=== PATIENT | female | born 1945 | race Caucasian/White ===

== ENCOUNTER → 2023-08-28 10:46 | Outpatient (REF) | payer OTHER, SELFPAY | LOC: HWWDC 10:46 | PROVIDERS: ATTENDING PHYSICIAN Family Medicine | DX: Z12.31 Encounter for screening mammogram for malignant neoplasm of breast (principal) | CPT/HCPCS: 77063; 77067 ==

== ENCOUNTER 2023-08-31 13:51 | Emergency (ER) | payer OTHER, SELFPAY ==
[2023-08-31] VITALS (12 sets, daily range): BP systolic 181–208; BP diastolic 59–96
[2023-08-31 14:17] LABS: % Basophils 0.1 % (0-2); % Immature Granulocytes 0.5 % (0-0.5); % Lymphocytes 16.2 % (20.5-51.1); % Monocytes 7.8 % (1.7-9.3); % Neutrophils 75.4 % (42.2-75.2); Absolute Immature Granulocytes 0.1 10^3/uL (0-0.05); Absolute Lymphocytes 1.8 10^3/uL (1.2-3.4); Absolute Monocytes 0.9 10^3/uL (0.1-0.6); Absolute Neutrophils 8.2 10^3/uL (1.4-6.5); Hematocrit 38.1 % (37.0-47.0); Hemoglobin 13.8 g/dL (12.0-16.0); Mean Corp Hgb Conc. 36.2 g/dL (33.0-37.0); Mean Corpuscular Hgb 31.2 pg (27.0-31.0); Mean Platelet Volume 9.8 fL (7.4-10.4); Nucleated Red Blood Cells % 0 %; Platelet Count 210 10^3/uL (130-400); Red Blood Cell Count 4.43 10^6/uL (4.20-5.40); Red Cell Dist. Width 11.7 % (11.5-14.5); White Blood Cell Count 10.9 10^3/uL (4.8-10.8)
[2023-08-31 14:35] LABS: ALT (SGPT) 25 U/L (0-35); AST (SGOT) 34 U/L (14-36); Albumin 4.7 g/dl (3.5-5.0); Alkaline Phosphatase 69 U/L (38-126); Blood Urea Nitrogen 21 mg/dl (7-17); Calcium 9.7 mg/dl (8.4-10.2); Carbon Dioxide 30 mmol/L (22-30); Chloride 95 mmol/L (98-107); Glucose 125 mg/dl (70-99); Potassium 3.5 mmol/L (3.5-5.1); Sodium 129 mmol/L (135-145); Total Bilirubin 0.7 mg/dl (0.2-1.3); eGFR > 60.00
--- NOTE | 2023-08-31 17:29 | ED.GENMED ---
History of Present Illness
<CHINTAN Bello - Last Filed: 08/31/23 20:17>
General
Chief Complaint: Blood Pressure Problem
Source: patient
Exam Limitations: none
Time Seen by Provider: 08/31/23 17:15
Nursing documentation reviewed up to this point in time: agreed with
Travel History
Have you had any contact with someone who has COVID-19?: No
Do you have any symptoms of coronavirus? Fever > 100 degrees, chills, cough, shortness of breath, sore throat, loss of taste or smell, muscle aches, or headache?: No
History of Present Illness
History of Present Illness:
Patient is a 77-year-old female with history of hypertension hyperlipidemia presents to the ER for elevated blood pressure. Patient reports she has been flushed in the face since yesterday afternoon had some pressure behind her eyes. This
continued today. She took her blood pressure was 190 systolically. She has been taking her medication and has not missed a dose. She denies any chest pain shortness of breath nausea vomiting fever chills. Denies any new [id number] cough
cold medicines.
Review of Systems
<CHINTAN Bello - Last Filed: 08/31/23 20:17>
Review of Systems
Allergies reviewed?: Yes
All Other Systems: ROS reviewed and negative except as documented in HPI and ROS
Constitutional: Reports no symptoms; Denies fever, fatigue or chills
EENT: Reports no symptoms
Respiratory: Reports no symptoms; Denies trouble breathing
Cardiac: Reports no symptoms; Denies chest pain, diaphoresis or palpitations
ABD/GI: Reports no symptoms; Denies abdominal pain, nausea or vomiting
: Reports no symptoms
Musculoskeletal: Reports no symptoms; Denies neck pain
Skin: Reports no symptoms
Neurological: Reports other ('pressure behind eyes' )
Psychiatric: Reports no symptoms
Phy Exam
<CHINTAN Bello - Last Filed: 08/31/23 20:17>
General Physical Exam
General Presentation: no apparent distress
General age: appears stated age
General Skin: warm and dry
General Habitus: normal
General Mental: alert
General Hydration: appears well hydrated
Cardiovascular Exam
Cardiovascular Exam: regular rate/rhythm, no murmur and normal peripheral pulses
Pulmonary Exam
Pulmonary Exam: lungs clear and no respiratory distress
Neurological Exam
Neurological Exam: alert, oriented x3, no sensory deficits and speech normal
Musculoskeletal Exam
Musculoskeletal Exam: full ROM
Skin Exam
Skin Exam: normal color
Psychiatric Exam
Psychiatric Exam: normal mood/affect
Course
<CHINTAN Bello - Last Filed: 08/31/23 20:17>
Orders/Labs/Results
Orders:
Orders
08/31/23 14:03
CBC/With Diff [Complete Blood Count/With Diff] Urgent
CMP [Comprehensive Metabolic Panel] Urgent
08/31/23 17:26
Electrocardiogram (*1) Stat
Reason for Study: Other
Other Reason for Exam: chest pain
EKG- Treatment ONCE
08/31/23 17:27
Cardiac Monitoring- Treatment ONCE
08/31/23 17:30
CT Head W/o Iv Contrast Urgent
Comment:
Reason For Exam: headache elevated bp
08/31/23 19:14
IV Insert/Care/Rem.- Treatment PRN
0.9% Sodium Chloride 1000 ml [Nss] 1,000 ml IV BOLUS
Abnormal Lab Results
08/31/23
14:03
WBC 10.9 H 10^3/uL
(4.8-10.8)
MCH 31.2 H pg
(27.0-31.0)
Abs Immat Gran (auto) 0.1 H 10^3/uL
(0-0.05)
Absolute Neuts (auto) 8.2 H 10^3/uL
(1.4-6.5)
Absolute Monos (auto) 0.9 H 10^3/uL
(0.1-0.6)
Neutrophils % 75.4 H %
(42.2-75.2)
Lymphocytes % 16.2 L %
(20.5-51.1)
Sodium 129 L mmol/L
(135-145)
Chloride 95 L mmol/L
(98-107)
BUN 21 H mg/dl
(7-17)
Glucose 125 H mg/dl
(70-99)
08/31/23 14:03
08/31/23 14:03
Vital Signs
Initial and Last Documented VS:
Initial Vital Signs
Temp Pulse Resp BP Pulse Ox
98.3 F 87 16 208/96 98
08/31/23 13:54 08/31/23 13:54 08/31/23 13:54 08/31/23 13:54 08/31/23 13:54
Last Documented Vital Signs
Temp Pulse Resp BP Pulse Ox
98.3 F 58 15 181/74 97
08/31/23 13:54 08/31/23 19:45 08/31/23 19:45 08/31/23 19:45 08/31/23 20:00
<Otilio Call, DO - Last Filed: 08/31/23 19:14>
Orders/Labs/Results
Orders:
Orders
08/31/23 14:03
CBC/With Diff [Complete Blood Count/With Diff] Urgent
CMP [Comprehensive Metabolic Panel] Urgent
08/31/23 17:26
Electrocardiogram (*1) Stat
Reason for Study: Other
Other Reason for Exam: chest pain
EKG- Treatment ONCE
08/31/23 17:27
Cardiac Monitoring- Treatment ONCE
08/31/23 17:30
CT Head W/o Iv Contrast Urgent
Comment:
Reason For Exam: headache elevated bp
08/31/23 19:14
IV Insert/Care/Rem.- Treatment PRN
0.9% Sodium Chloride 1000 ml [Nss] 1,000 ml IV BOLUS
Abnormal Lab Results
08/31/23
14:03
WBC 10.9 H 10^3/uL
(4.8-10.8)
MCH 31.2 H pg
(27.0-31.0)
Abs Immat Gran (auto) 0.1 H 10^3/uL
(0-0.05)
Absolute Neuts (auto) 8.2 H 10^3/uL
(1.4-6.5)
Absolute Monos (auto) 0.9 H 10^3/uL
(0.1-0.6)
Neutrophils % 75.4 H %
(42.2-75.2)
Lymphocytes % 16.2 L %
(20.5-51.1)
Sodium 129 L mmol/L
(135-145)
Chloride 95 L mmol/L
(98-107)
BUN 21 H mg/dl
(7-17)
Glucose 125 H mg/dl
(70-99)
08/31/23 14:03
08/31/23 14:03
Vital Signs
Initial and Last Documented VS:
Initial Vital Signs
Temp Pulse Resp BP Pulse Ox
98.3 F 87 16 208/96 98
08/31/23 13:54 08/31/23 13:54 08/31/23 13:54 08/31/23 13:54 08/31/23 13:54
Last Documented Vital Signs
Temp Pulse Resp BP Pulse Ox
98.3 F 58 15 181/74 97
08/31/23 13:54 08/31/23 19:45 08/31/23 19:45 08/31/23 19:45 08/31/23 20:00
<CHINTAN Bello - Last Filed: 08/31/23 20:17>
MDM/Problems Addressed
Differential Diagnosis Includes:
Not limited to hypertension, less likely intracranial hemorrhage
MDM/Problems Addressed:
Patient is a 77-year-old female who presented to the ER for evaluation. She felt facial flushing yesterday and today reports her blood pressure has been elevated. She had some pressure behind her eyes. Patient is on HCTZ for elevated blood
pressure. She presents with an elevated blood pressure however no obvious headache. no neurodeficits. She denies any recent fevers and is afebrile with a white count of 10.9 sodium however is low at 129. Patient does admit to not being a good
water drinker and is on HCTZ. Case reviewed with ED physician will give fluids however patient does feel well after go home she is stable and non toxic. Will have patient's stop HCTZ start low-dose lisinopril and amlodipine with close outpatient
follow-up.
Chronic conditions affecting care:
Hypertension high cholesterol
<CHINTAN Bello - Last Filed: 08/31/23 20:17>
*Radiology
Radiology exam reviewed: radiology read reviewed
*Pulse Oximetry
Patient hypoxic: no
*EKG
Interpreted by ED Provider?: Yes
Interpretation: normal
Heart Rate: 64
Rate: normal
Rhythm: sinus
Ischemia: no ischemia
*Critical Care Note
Total Time (30-74mins, 75-104mins- exclusive of procedures): Not Applicable
ED Attending Note
<CHINTAN Bello - Last Filed: 08/31/23 20:17>
-
Portions of this chart may have been created with voice recognition software.� Occasional wrong word or��sound alike� substitutions may have occurred due to the inherent limitations of voice recognition software.
<Otilio Call, DO - Last Filed: 08/31/23 19:14>
ED Attending Note
Patient seen and examined by attending physician: Yes
I performed the substantive portion of visit, reviewed & personally made and approve the management plan that is documented in note by myself or RENNY.: Yes
ED Attending Note:
I have seen and evaluated the patient with a [id number] encounter. I have spoken to the advance practicer provider and involved in the medical history, the physical exam, medical decision making.
Evaluation and management service: agree unless noted differently below.
Results interpretation: agree unless noted differently below.
Focused HPI: 77-year-old female presenting with elevated blood pressure and feeling 'off'. Patient states her blood pressure is usually normal. She states compliance with hydrochlorothiazide.
Physical exam: Mildly dry mucous membranes. No focal neurodeficits.
Medical Decision Making: Patient found to be mildly hyponatremic. This is likely in the mixture of hypovolemia and hydrochlorothiazide side effect. Will start low-dose amlodipine and lisinopril and discussed cessation of hydrochlorothiazide. I
offered admission given her symptoms. Patient acknowledged my concerns but states she feels comfortable going home and will call her doctor to explain all this
Discharge Plan
Departure
Patient Disposition: Home (Routine Discharge)
Date of Disposition: 08/31/23
Time of Disposition: 20:11
Patient with high blood pressure during this ER visit?: Yes
Condition: Fair
Covid-19: Not Applicable
Discharge Problem:
elevated blood presure , Acute hyponatremia
Instructions: High Blood Pressure (DC), Hyponatremia (DC), BLOOD PRESSURE
Prescriptions:
New
lisinopril 10 mg tablet
10 mg PO DAILY Qty: 30 0RF
amlodipine 5 mg tablet
5 mg PO DAILY Qty: 30 0RF
No Action
aspirin 81 MG tablet,delayed release (DR/EC)
81 mg PO HS
levothyroxine 100 MCG tablet
100 mcg PO DAILY@0700
hydrochlorothiazide 25 MG tablet
25 mg PO DAILY
olmesartan 20 MG tablet
20 mg PO DAILY
escitalopram oxalate 10 MG tablet
20 mg PO HS
multivitamin [One A Day] Tablet
1 tab PO DAILY
Fish Oil
1 cap PO DAILY
acetaminophen [Tylenol Extra Strength] 500 mg Tablet
1,000 mg PO Q6H PRN (Reason: pain )
Referrals:
UNKNOWN - PT NOT,INTERVIEWE [Family Provider] -
Activity Restrictions/Additional Instructions:
Stop hydrochlorothiazide increase fluid intake. You were started on 2 new blood pressure medications, amlodipine 5 mg to be taken once daily and lisinopril 10 mg taken daily. These medications were sent to your pharmacy. Follow-up with your
family doctor in the next several days for reevaluation of blood pressure as well as reevaluation and lab check of your sodium which was low here in the ER.
Return if any worsening of symptoms if increasing weakness lightheaded dizziness headache nausea vomiting chest pain shortness of breath or any concerns.
Interventions
Interventions:
*Risk Screen - Suicide Last Done: 08/31/23 13:54
*General Assessment Last Done: 08/31/23 13:54
*Neglect/Abuse Screening Last Done: 08/31/23 13:54
*ED COVID-19 Vaccine History Last Done: 08/31/23 17:24
ED- Cardiac Assessment Last Done: 08/31/23 17:23
ED- Neurological Assessment Last Done: 08/31/23 17:23
ED- Pulmonary Assessment Last Done: 08/31/23 17:23
[2023-08-31] MEDS: NSS 1000 IV (19:33)
== END 2023-08-31 20:46 | disposition home or self-care (01) ==
LOC: EMR 13:51
PROVIDERS: Emergency Medicine; EMERGENCY PHYSICIAN Student in an Organized Health Care Education/Training Program
DX: E87.1 Hypo-osmolality and hyponatremia (principal); I10 Essential (primary) hypertension; E78.00 Pure hypercholesterolemia, unspecified
CPT/HCPCS: 99284; 96360; 70450; 80053; 85025; 93005

== ENCOUNTER → 2023-12-26 17:56 | Outpatient (REF) | payer OTHER, SELFPAY | LOC: PAVMRI 17:56 | PROVIDERS: ATTENDING PHYSICIAN Orthopaedic Surgery; FAMILY PHYSICIAN Family Medicine | DX: M25.561 Pain in right knee (principal) | CPT/HCPCS: 73721 ==

== ENCOUNTER → 2024-01-09 12:03 | Outpatient (REF) | payer OTHER, SELFPAY ==
[2024-01-09 16:34] LABS: Blood Urea Nitrogen 14 mg/dl (7-17); Calcium 9.9 mg/dl (8.4-10.2); Carbon Dioxide 30 mmol/L (22-30); Chloride 98 mmol/L (98-107); Glucose 138 mg/dl (70-99); Potassium 3.9 mmol/L (3.5-5.1); Sodium 136 mmol/L (135-145); eGFR > 60.00
== END ==
LOC: HWLAB 12:03
PROVIDERS: ATTENDING PHYSICIAN Orthopaedic Surgery; FAMILY PHYSICIAN Family Medicine
DX: Z01.818 Encounter for other preprocedural examination (principal)
CPT/HCPCS: 36415; 80048; 93005

== ENCOUNTER → 2024-06-15 11:21 | Outpatient (REF) | payer OTHER, SELFPAY | LOC: MRI 3T 11:21 | PROVIDERS: ATTENDING PHYSICIAN Physician Assistant; FAMILY PHYSICIAN Family Medicine | DX: M54.16 Radiculopathy, lumbar region (principal) | CPT/HCPCS: 72148 ==

== ENCOUNTER → 2024-08-29 11:48 | Outpatient (REF) | payer OTHER, SELFPAY | LOC: WDC 11:48 | PROVIDERS: ATTENDING PHYSICIAN Family Medicine | DX: Z12.31 Encounter for screening mammogram for malignant neoplasm of breast (principal) | CPT/HCPCS: 77063; 77067 ==